=== PATIENT | male | born 1990 ===

== ENCOUNTER 2018-06-12 09:33 | Emergency (ER) | payer MEDICAID ==
[2018-06-12 09:56] VITALS: RESP 18; TEMP 97
[2018-06-12] MEDS ORDERED: LORAZEPAM 2 MG/ML SOL IV ONE (10:06)
[2018-06-12] MEDS ORDERED: LORAZEPAM 0.5 MG TAB PO ONE (10:42)
[2018-06-12] MEDS ORDERED: LORAZEPAM 0.5 MG TAB ONE (10:43)
[2018-06-12 10:44] LABS: AMPHETAMINES NEGATIVE (NEGATIVE); BARBITUATES NEGATIVE (NEGATIVE); BENZODIAZEPINES NEGATIVE (NEGATIVE); CANNABINOL(THC) POSITIVE (NEGATIVE); COCAINE(COC) NEGATIVE (NEGATIVE); METHAMPHETAMINES NEGATIVE (NEGATIVE); OPIATES(OP13) NEGATIVE (NEGATIVE); OXYCODONE(OXY) NEGATIVE (NEGATIVE); PROPOXYPHENE(PPX) NEGATIVE (NEGATIVE)
[2018-06-12 11:14] VITALS: BP 161/105; PULSE 76; O2SAT 100
== END 2018-06-12 11:28 | DRG 897 ==
LOC: ED 09:33
DX: F10.231 Alcohol dependence with withdrawal delirium (principal); F12.90 Cannabis use, unspecified, uncomplicated
CPT/HCPCS: 36415; 80305; 80307; 99283; A9270-GY

== ENCOUNTER 2018-09-29 05:28 | Emergency (ER) | payer OTHER ==
[2018-09-29] MEDS ORDERED: SODIUM CHLORIDE 0.9% FLUSH 10 ML SOL IV PRN (05:43)
[2018-09-29] MEDS ORDERED: SODIUM CHLORIDE 0.9% 1000ML 1,000 ML IV ONE (05:51)
[2018-09-29 06:05] VITALS: O2SAT 96
[2018-09-29 06:09] LABS: BASOPHILS % (AUTO) 2 % (0-3); EOSINOPHILS % (AUTO) 1 % (0-9); HEMATOCRIT 50 % (39-53); HEMOGLOBIN 16.6 gm/dl (13.5-17.7); LYMPHOCYTES % (AUTO) 33.9 % (10-50); MEAN CORPUSCULAR HEMOGLOBIN 30.5 pg (27.0-32.0); MEAN CORPUSCULAR HGB CONC 33.2 gm/dl (32.0-36.0); MEAN CORPUSCULAR VOLUME 92 fL (80-100); MONOCYTES % (AUTO) 6.9 % (0-12); NEUTROPHILS % (AUTO) 55.7 % (37-80)
[2018-09-29 06:10] VITALS: TEMP 96.4
[2018-09-29 06:33] LABS: BLOOD UREA NITROGEN 12 mg/dl (7-18); CALCIUM 8.5 mg/dl (8.5-10.1); CARBON DIOXIDE 24.5 mEq/L (21-32); CHLORIDE 104 mMol/L (98-107); CREATININE 0.87 mg/dl (0.80-1.30); GLUCOSE 113 mg/dl (74-106); POTASSIUM 3.6 mMol/L (3.5-5.1); SODIUM 144 mMol/L (136-145); THYROID STIMULATING HORMONE 1.318 uIU/ml (0.358-3.740)
[2018-09-29 06:39] LABS: ALCOHOL 0.336 gm/dl (0.000-0.08)
[2018-09-29 06:40] LABS: ACETAMINOPHEN < 2 ug/ml (10-30)
[2018-09-29 07:09] LABS: AMPHETAMINES NEGATIVE (NEGATIVE); BARBITUATES NEGATIVE (NEGATIVE); BENZODIAZEPINES NEGATIVE (NEGATIVE); CANNABINOL(THC) NEGATIVE (NEGATIVE); COCAINE(COC) NEGATIVE (NEGATIVE); METHADONE NEGATIVE (NEGATIVE); METHAMPHETAMINES NEGATIVE (NEGATIVE); OPIATES(OPI) NEGATIVE (NEGATIVE); OXYCODONE(OXY) NEGATIVE (NEGATIVE); PROPOXYPHENE(PPX) NEGATIVE (NEGATIVE); TRICYCLIC ANTIDEPRESSANTS NEGATIVE (NEGATIVE)
[2018-09-29 10:30] VITALS: BP 140/84; PULSE 81; RESP 18
== END 2018-09-29 08:50 | disposition home or self-care (01) | DRG 897 ==
LOC: ED 05:28
DX: F10.129 Alcohol abuse with intoxication, unspecified (principal); Y90.8 Blood alcohol level of 240 mg/100 ml or more; T42.4X4A Poisoning by benzodiazepines, undetermined, initial encounter
CPT/HCPCS: 80048; 80305; 80307; 84443; 85025; 96365; 99283; 99285